=== PATIENT | male | born 1960 | race Caucasian/White ===

== ENCOUNTER → 2016-09-08 | Outpatient (CLI) | payer OTHER ==
--- NOTE | 2016-09-08 15:23 | CT ---
EXAMINATION TYPE: CT soft tissue neck w con DATE OF EXAM: 09/08/2016 3:12 PM HISTORY: Right sided neck swelling x 3 months. COMPARISON: NONE CT DLP: 363.90 mGycm. Automated Exposure Control for Dose Reduction was Utilized. TECHNIQUE: CT scan of the neck is performed with IV Contrast, patient injected with 100 mL of Omnipa que 300, axial images are obtained, coronal and sagittal reformatted images are reviewed. FINDINGS: A metallic BB is placed at level of palpable abnormality right lateral neck and axial image 42. Just superior to this level there is a subcentimeter benign-appearing lymph node on axial image 46 just anterior to SCM noted. There is prominent patent external jugular vein noted near BB. There i s no worrisome solid or cystic mass or abnormal fluid collection seen. Airway: Mild underlying emphysematous change is present. Some scattered areas of groundglass opacity could reflect edema and/or infiltrates in the bilateral upper lobes, clinical correlation for infecti on or pneumonia advised. There are prominent but subcentimeter lymph nodes in the paratracheal region , prevascular region, and visualized AP window. Nonspecific finding Parotid/submandibular glands: No gross abnormality seen. Carotid/Vascular Structures: There is mild to moderate mixed plaque at bilateral carotid bulbs withou t significant stenosis clearly seen bilaterally. Osseous Structures: There is loss of normal cervical curvature with moderate spurring and disc space narrowing C5-C6 and C6-C7 levels noted. Other: No greater than 1 cm neck adenopathy is seen. IMPRESSION: No worrisome mass or adenopathy is seen at level of palpable abnormality right lateral ne ck, prominent vessel at this level is felt to reflect prominent external jugular vein.
== END | disposition home or self-care (01) ==
LOC: RADCTMAIN 14:50
PROVIDERS: ATTEND Otolaryngology
DX: R22.1 Localized swelling, mass and lump, neck (principal)
CPT/HCPCS: 70491; Q9967

== ENCOUNTER 2021-06-18 07:20 | Day surgery (SDC) | payer OTHER ==
[2021-06-12 14:34] VITALS: BMI 28.1
[~2021-06-18 07:20] MED LIST: LACTATED RINGERS 1,000 ML IV SCH; LIDOCAINE 1% (10MG/ML) FOR IV START INTRADERMA PRN
[2021-06-18 07:57] VITALS: TEMP 98.2
[2021-06-18] MEDS ORDERED: PROPOFOL 10 MG/ML 20 ML VIAL IV ONE (08:05)
[2021-06-18 08:08] LABS: Glucose,Whole Blood 94 mg/dL (75-99)
--- NOTE | 2021-06-18 08:24 | P.GSHP ---
History of Present Illness H&P Date: 06/18/21 Chief Complaint: History of colon polyps, screening 60-year-old male here today for colonoscopy. Last colonoscopy 7 years ago. Patient with personal history of colon polyps. Patient had a large polyp at the time of his last colonoscopy. No bowel complaints. No family history of colon cancer. Past Medical History Past Medical History: Hypertension History of Any Multi-Drug Resistant Organisms: None Reported Past Surgical History: Appendectomy, Hernia Repair Additional Past Surgical History / Comment(s): COLONOSCOPY Past Anesthesia/Blood Transfusion Reactions: No Reported Reaction Smoking Status: Current every day smoker - Past Family History Mother Family Medical History: No Reported History Medications and Allergies Home Medications Medication Instructions Recorded Confirmed Type amLODIPine [Norvasc] 10 mg PO DAILY 06/12/21 06/18/21 History Allergies Allergy/AdvReac Type Severity Reaction Status Date / Time No Known Allergies Allergy Verified 06/12/21 14:29 Surgical - Exam Vital Signs Temp Pulse Resp BP Pulse Ox 98.2 F 88 18 123/73 94 L 06/18/21 07:55 06/18/21 07:55 06/18/21 07:55 06/18/21 07:55 06/18/21 07:55 Physical exam: General: Well-developed, well-nourished HEENT: Normocephalic, sclerae nonicteric Abdomen: Nontender, nondistended Extremities: No edema Neuro: Alert and oriented Assessment and Plan (1) Colon cancer screening Narrative/Plan: Will proceed with colonoscopy at this time Current Visit: Yes Status: Acute Code(s): Z12.11 - ENCOUNTER FOR SCREENING FOR MALIGNANT NEOPLASM OF COLON SNOMED Code(s): 809698320
--- NOTE | 2021-06-18 08:25 | P.PCN ---
Date of Procedure: 06/18/21 Procedure(s) Performed: PREOPERATIVE DIAGNOSIS: Colon cancer screening history of polyps POSTOPERATIVE DIAGNOSIS: Diverticulosis PROCEDURE: Colonoscopy ANESTHESIA: MAC SURGEON: Shahbaz Lai M.D. SPECIMENS: None ENDOSCOPIC PROCEDURE: The patient was placed on the endoscopy table in the left decubitus position. The Olympus colonoscope was inserted into the anus and passed under direct visualization to the base of the cecum. The appendiceal orifice was visualized. From that point the scope was slowly withdrawn inspecting all surfaces carefully. There were no neoplastic inflammatory or polypoid lesions throughout the cecum, ascending, transverse, descending, sigmoid and rectum. There was moderate left-sided diverticulosis noted. Digital rectal examination was normal. The patient was taken to the recovery room in stable condition per anesthesia guidelines. RECOMMENDATIONS: Resume diet. Follow-up colonoscopy 5 years.
[2021-06-18 08:34] VITALS: RESP 16
[2021-06-18 08:55] VITALS: BP 121/78; PULSE 64
== END 2021-06-18 09:10 | disposition home or self-care (01) ==
LOC: ORWHC2ENDO 07:20
PROVIDERS: ATTEND Surgery
DX: Z12.11 Encounter for screening for malignant neoplasm of colon (principal); K57.30 Diverticulosis of large intestine without perforation or abscess without bleeding; Z86.010 Personal history of colon polyps; I10 Essential (primary) hypertension; F17.200 Nicotine dependence, unspecified, uncomplicated; G47.33 Obstructive sleep apnea (adult) (pediatric); Z90.49 Acquired absence of other specified parts of digestive tract; Z79.899 Other long term (current) drug therapy; Z98.890 Other specified postprocedural states
CPT/HCPCS: J2704; G0121; 45378

== ENCOUNTER → 2022-09-17 | Outpatient (CLI) | payer OTHER ==
--- NOTE | 2022-09-17 14:52 | US ---
EXAMINATION TYPE: US scrotum with doppler. Grayscale and color Doppler Duplex imaging performed of t rehan scrotum. DATE OF EXAM: 09/17/2022 COMPARISON: NONE CLINICAL HISTORY: N50.89 DISORDERS OF THE MALE GENITAL ORGANS. lump left side. EXAM MEASUREMENTS: TESTICLES: Right Testicle: 4.5 x 2.8 x 2.9 cm Left Testicle: 4.2 x 2.7 x 3.0 cm EPIDIDYMIS HEAD: Right Epididymis: .7 x .9 x .7 cm Left Epididymis: .8 x .8 cm complex cystic area seen 2.7 x 2.4 x 3.2 cm. No internal color flow deandre ntified. Doppler performed to assess for testicular vascularity; good bilateral color flow and waveforms are s een. There is no evidence of testicular torsion. Presence of hydroceles: Small amount of fluid right. IMPRESSION: 1. No evidence of testicular torsion. 2. Left epididymal 3.2 cm cyst with internal debris. 3. Small right hydrocele.
== END | disposition home or self-care (01) ==
LOC: RADUSWWP 14:13
PROVIDERS: ATTEND Family Medicine
DX: N50.89 Other specified disorders of the male genital organs (principal); N50.3 Cyst of epididymis; N43.3 Hydrocele, unspecified
CPT/HCPCS: 76870; 93975

== ENCOUNTER 2022-10-26 11:25 | Emergency (ER) | payer OTHER ==
[2022-10-26 11:49] VITALS: BP 157/102; PULSE 67; RESP 20; TEMP 98.1
[2022-10-26] MEDS ORDERED: AMOXIC-POT CLAV 875-125MG 1 EACH TAB PO STA (12:10)
[2022-10-26] MEDS ORDERED: DEXAMETHASONE SOD PHOSPHATE 10 MG/ML 1 ML VIAL IM STA (12:10)
--- NOTE | 2022-10-26 12:16 | ED ---
ENT HPI - General Chief complaint: ENT Stated complaint: facial swelling Time Seen by Provider: 10/26/22 11:52 Source: patient Mode of arrival: ambulatory Limitations: no limitations - History of Present Illness Initial comments: Patient is a 62-year-old male presents to the emergency department for facial swelling. Patient reports mild facial swelling of the left cheek and upper lip for the past 2 days. States the swelling has not gotten worse but it has not improved. He denies any pain in the face as well as dental pain. He denies fever, chills, nausea, vomiting. Denies blurred vision, double vision, ear pain, throat pain, headache. Patient does report periodontal surgery in July from long-term use of cigarettes. States he has a cleaning scheduled tomorrow. Patient is not on an BALBIR inhibitor. - Related Data Home Medications Medication Instructions Recorded Confirmed amLODIPine [Norvasc] 10 mg PO DAILY 06/12/21 06/18/21 Previous Rx's Medication Instructions Recorded Amoxic-Pot Clav 875-125Mg 1 tab PO BID 5 Days #10 tab 10/26/22 [Augmentin 875-125] Allergies Allergy/AdvReac Type Severity Reaction Status Date / Time No Known Allergies Allergy Verified 10/26/22 11:49 Review of Systems ROS Statement: Those systems with pertinent positive or pertinent negative responses have been documented in the HPI. ROS Other: All systems not noted in ROS Statement are negative. Past Medical History Past Medical History: Hypertension History of Any Multi-Drug Resistant Organisms: None Reported Past Surgical History: Appendectomy, Hernia Repair Additional Past Surgical History / Comment(s): COLONOSCOPY Past Anesthesia/Blood Transfusion Reactions: No Reported Reaction Past Psychological History: No Psychological Hx Reported Smoking Status: Current every day smoker Past Alcohol Use History: None Reported Past Drug Use History: None Reported - Past Family History Mother Family Medical History: No Reported History General Exam Limitations: no limitations General appearance: alert, in no apparent distress Head exam: Present: other (Mild swelling of the left lower cheek and upper left lip. No warmth, blanching, tenderness. No fluctuance or drainable abscess) Eye exam: Present: normal appearance, PERRL, EOMI. Absent: scleral icterus, conjunctival injection, periorbital swelling, periorbital tenderness ENT exam: Present: normal oropharynx (Multiple decayed teeth including left upper molar. No obvious infection no fluctuance or drainable abscess) Respiratory exam: Present: normal lung sounds bilaterally. Absent: respiratory distress, wheezes, rales, rhonchi, stridor Cardiovascular Exam: Present: regular rate, normal rhythm, normal heart sounds. Absent: systolic murmur, diastolic murmur, rubs, gallop, clicks Neurological exam: Present: alert, oriented X3, CN II-XII intact Psychiatric exam: Present: normal affect, normal mood Skin exam: Present: warm, dry, intact, normal color. Absent: rash Course Vital Signs 10/26/22 11:46 Temperature 98.1 F Pulse Rate 67 Respiratory 20 Rate Blood Pressure 157/102 O2 Sat by Pulse 95 Oximetry Medical Decision Making - Medical Decision Making Was pt. sent in by a medical professional or institution (, PA, [employer], urgent care, hospital, or prison...) When possible be specific @ -No Did you speak to anyone other than the patient for history (EMS, parent, family, police, friend...)? What history was obtained from this source @ -No Did you review nursing and triage notes (agree or disagree)? Why? @ -I reviewed and agree with nursing and triage notes Were old charts reviewed (outside hosp., previous admission, EMS record, old EKG, old radiological studies, urgent care reports/EKG's, prison records)? Report findings @ -No old charts were reviewed Differential Diagnosis (chest pain, altered mental status, abdominal pain women, abdominal pain men, vaginal bleeding, weakness, fever, dyspnea, syncope, headache, dizziness, GI bleed, back pain, seizure, CVA, palpatations, mental health)? @ -Cellulitis, abscess, dental infection, ALLERGIC reaction. This list is not meant to be all-inclusive EKG interpreted by me (3pts min.). @ -As above X-rays interpreted by me (1pt min.). @ -None done CT interpreted by me (1pt min.). @ -None done U/S interpreted by me (1pt. min.). @ -None done What testing was considered but not performed or refused? (CT, X-rays, U/S, labs)? Why? @ -None What meds were considered but not given or refused? Why? @ -None Did you discuss the management of the patient with other professionals (professionals i.e. , PA, [employer], lab, RT, psych nurse, licensed clinical social worker, senior commissions analyst, teacher, probation and parole officer, case management manager)? Give summary @ -No Was smoking cessation discussed for >3mins.? @ -No Was critical care preformed (if so, how long)? @ -No Were there social determinants of health that impacted care today? How? (Homelessness, low income, unemployed, alcoholism, drug addiction, transportation, low edu. Level, literacy, decrease access to med. care, correction, rehab)? @ -[No] Was there de-escalation of care discussed even if they declined (Discuss DNR or withdrawal of care, Hospice)? DNR status @ -[No] What co-morbidities impacted this encounter? (DM, HTN, Smoking, COPD, CAD, Cancer, CVA, ARF, Chemo, Hep., AIDS, mental health diagnosis, sleep apnea, morbid obesity)? @ -[None] Was patient admitted / discharged? Hospital course, mention meds given and route, prescriptions, significant lab abnormalities, going to OR and other pertinent info. @Patient presenting for isolated facial swelling. He has mild swelling of the left cheek and left upper lip which is not consistent with cellulitis. Patient does have decayed left upper molar tooth without obvious infection. No fluctuance or drainable abscess. With this I will treat for possible infectious process originating from the teeth. Patient given dose of Decadron and Augmentin. He will be discharged with Augmentin and strict return parameters. He will follow up with his dentist and primary care provider. Undiagnosed new problem with uncertain prognosis? @ -[No] Drug Therapy requiring intensive monitoring for toxicity (Heparin, Nitro, Insulin, Cardizem)? @ -[No] Were any procedures done? @ -[No] Diagnosis/symptom? @ -Cheek swelling Acute, or Chronic, or Acute on Chronic? @ -Acute Uncomplicated (without systemic symptoms) or Complicated (systemic symptoms)? @ -Uncomplicated Side effects of treatment? @ -[No] Exacerbation, Progression, or Severe Exacerbation? @ -[No] Poses a threat to life or bodily function? How? (Chest pain, [place], [place], pneumonia, PE, COPD, DKA, ARF, appy, cholecystitis, CVA, Diverticulitis, Homicidal, Suicidal, threat to staff... and all critical care pts) @ -[No] Dr. Riley is my attending Disposition Clinical Impression: Swelling, cheek Disposition: HOME SELF-CARE Condition: Good Instructions (If sedation given, give patient instructions): Dental Abscess (ED) Additional Instructions: Take medication as directed. Please follow-up with your primary care provider and dentist in 1-2 days. Return to the emergency department if you experience new, concerning, or worsening symptoms. Prescriptions: Amoxic-Pot Clav 875-125Mg [Augmentin 875-125] 1 tab PO BID 5 Days #10 tab Is patient prescribed a controlled substance at d/c from ED?: No Referrals: Sandra Moody MD [Primary Care Provider] - 1-2 days
== END 2022-10-26 13:22 | disposition home or self-care (01) ==
LOC: EC 11:25
DX: R22.0 Localized swelling, mass and lump, head (principal); I10 Essential (primary) hypertension; F17.200 Nicotine dependence, unspecified, uncomplicated; Z79.899 Other long term (current) drug therapy
CPT/HCPCS: 99282; 96372; J1100